=== PATIENT | female | born 1955 | race Caucasian/White ===

== ENCOUNTER → 2016-05-05 | Outpatient (CLI) | payer BC | END | disposition home or self-care (01) | LOC: C.PAPS 13:38 | PROVIDERS: ATTEND Obstetrics & Gynecology | DX: Z01.419 Encounter for gynecological examination (general) (routine) without abnormal findings (principal) ==

== ENCOUNTER 2017-07-24 15:28 | Emergency (ER) | payer OTHER ==
[~2017-07-24] VITALS: Ht 165.1 cm; Wt 67.0 kg
[2017-07-24 15:32] VITALS: BP 123/79; PULSE 82; TEMP 36.7; O2SAT 98; Ht 165.1 cm; Wt 67.0 kg
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
== END 2017-07-24 16:45 | disposition home or self-care (01) ==
LOC: C.EDB 15:30 → C.EDD 16:45
DX: S20.219A Contusion of unspecified front wall of thorax, initial encounter (principal); W22.8XXA Striking against or struck by other objects, initial encounter; R07.89 Other chest pain

== ENCOUNTER → 2017-07-27 | Outpatient (CLI) | payer OTHER ==
--- NOTE | 2017-07-27 14:23 | DIAGNOSTIC IMAGING REPORT ---
CHEST 2 VIEWS ROUTINE CLINICAL HISTORY: 61 years-old Female presenting with S29.9XXA Chest [id number]. TECHNIQUE: PA and lateral views of the chest were obtained. COMPARISON: None. FINDINGS: Atherosclerosis of the aortic arch. Cardiac silhouette normal in size. Lungs and pleural spaces clear. Osseous structures normal. Upper abdomen normal. IMPRESSION: 1. No acute cardiopulmonary disease. Electronically signed by: Mekhi Read M.D. 07/27/2017 2:22 PM Dictated Date/Time: 07/27/2017 2:21 PM
== END | disposition home or self-care (01) ==
LOC: C.RAD1850 14:08
PROVIDERS: ATTEND Internal Medicine
DX: S29.9XXA Unspecified injury of thorax, initial encounter (principal); X58.XXXA Exposure to other specified factors, initial encounter